=== PATIENT | female | born 1940 | race Caucasian/White ===

== ENCOUNTER → 2025-06-02 | Outpatient (CLI) | payer MEDICARE ==
[~2025-06-02] MED LIST: BACL10TA PO; GABA100C PO; HYDR-4060 PO; LEVO112T7 PO; LOSA1TAB54 PO
--- NOTE | 2025-06-04 06:02 | HMCIMG ---
EXAM: MR Thoracic Spine Without Intravenous Contrast. CLINICAL HISTORY: M51.34 Other intervertebral disc degeneration, thoracic region (Hx) TECHNIQUE: Magnetic resonance images of the thoracic spine in multiple planes. CONTRAST: None. COMPARISON: None. FINDINGS: The cervicothoracic and thoracolumbar junction is intact. No acute fracture. Normal thoracic curvature. Chronic compression fracture of the T12 thoracic vertebra and T6 thoracic with post-vertebroplasty status. The rest of the thoracic vertebrae are normal in height. An 8 mm hemangioma in the T3 thoracic vertebra. No abnormal signal involves the thoracic cord. No abnormal extra-axial masses are present. The prevertebral and paravertebral soft tissues are within normal limits. Qjfje-ev-tzjjz findings are as follows: C7-T1: No disc bulge or herniation. No neural foraminal, lateral recess, or spinal canal stenosis. T1-T2: No disc bulge or herniation. No neural foraminal, lateral recess, or spinal canal stenosis. T2-T3: No disc bulge or herniation. No neural foraminal, lateral recess, or spinal canal stenosis. T3-T4: No disc bulge or herniation. No neural foraminal, lateral recess, or spinal canal stenosis. T4-T5: No disc bulge or herniation. No neural foraminal, lateral recess, or spinal canal stenosis. T5-T6: Chronic anterior wedge compression fracture of the T6 vertebra. Bilateral hypertrophic facet arthropathy, with mild narrowing of the bilateral neural foramina. T6-T7: Mild disc desiccation and minimal 2 mm disc bulge with bilateral facet arthropathy. Moderate narrowing of the bilateral neural foramina, left more than right. No spinal canal stenosis. T7-T8: Mild disc desiccation. Moderate bilateral facet arthropathy, left more than right. Moderate narrowing of the left neural foramina. No spinal canal stenosis. T8-T9: No disc bulge or herniation. No neural foraminal, lateral recess, or spinal canal stenosis. T9-T10: No disc bulge or herniation. Moderate bilateral facet arthropathy, moderate narrowing of the bilateral neural foramina. No spinal canal stenosis. T10-T11: No disc bulge or herniation. Moderate bilateral facet arthropathy, moderate narrowing of the bilateral neural foramina. No spinal canal stenosis. T11-T12: No disc bulge or herniation. No neural foraminal, lateral recess, or spinal canal stenosis. T12-L1: No disc bulge or herniation. No neural foraminal, lateral recess, or spinal canal stenosis. A large exophytic cortical cyst from the right kidney upper pole (6.4 cm). IMPRESSION: Chronic anterior wedge compression fracture of the T6 and T12 vertebrae with post-vertebroplasty status. No evidence of acute fracture or subluxation. 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 /Johnson
== END | disposition home or self-care (01) ==
LOC: RAH 14:33
PROVIDERS: ATTEND Neurological Surgery
DX: S22.050A Wedge compression fracture of T5-T6 vertebra, initial encounter for closed fracture (principal); S22.080A Wedge compression fracture of T11-T12 vertebra, initial encounter for closed fracture; M51.34 Other intervertebral disc degeneration, thoracic region; M47.814 Spondylosis without myelopathy or radiculopathy, thoracic region; X58.XXXA Exposure to other specified factors, initial encounter; Y93.89 Activity, other specified; Y92.89 Other specified places as the place of occurrence of the external cause; Y99.8 Other external cause status
CPT/HCPCS: 72146